=== PATIENT | male | born 1975 | race African-American/Black ===

== ENCOUNTER 2019-10-09 09:59 | Emergency (ER) | payer BC, SELFPAY ==
[2019-10-09 10:12] VITALS: BP 151/97; PULSE 101; RESP 18; TEMP 36.7; O2SAT 97
--- NOTE | 2019-10-09 10:54 | ED.MALEGU ---
HPI - Male Genitourinary General Chief complaint: Urogenital-Male <Marla Street PA-C - Last Filed: 10/09/19 12:08> Stated complaint: FORESKIN IS SWOLLEN <Marla Street PA-C - Last Filed: 10/09/19 12:08> Time Seen by Provider: 10/09/19 10:44 <Marla Street PA-C - Last Filed: 10/09/19 12:08> Source: patient <Marla Street PA-C - Last Filed: 10/09/19 12:08> Mode of arrival: ambulatory <Marla Street PA-C - Last Filed: 10/09/19 12:08> Limitations: no limitations <Marla Street PA-C - Last Filed: 10/09/19 12:08> History of Present Illness HPI Narrative: This is a 44 year old male that presents to the ER for foreskin inflammation since yesterday. Reports he started to have some irritation and itching 2 days ago. Reports he started to have swelling yesterday and cannot pull his foreskin back. Denies any concern for STDs. Denies dysuria or hematuria. <Marla Street PA-C - Last Filed: 10/09/19 12:08> Related Data Allergies/Adverse reactions: Allergies Allergy/AdvReac Type Severity Reaction Status Date / Time diphenhydramine AdvReac Severe Confusion Verified 10/09/19 11:51 <Marla Street PA-C - Last Filed: 10/09/19 12:08> Review of Systems Review of Systems: Narrative: CONSTITUTIONAL: Denies fever GENITOURINARY: Denies dysuria or hematuria SKIN: Denies rash <Marla Street PA-C - Last Filed: 10/09/19 12:08> All systems reviewed & are unremarkable except as noted in HPI and below <Marla Street PA-C - Last Filed: 10/09/19 12:08> [facility]LY [facility] Past Medical History Medical History: Medical History (Updated 10/09/19 @ 11:[address] PA-C) History of hypertension <Marla Street PA-C - Last Filed: 10/09/19 12:08> Surgical History Surgical History: Surgical History (Updated 10/09/19 @ 10:[address] PA-C) Status post cervical disc replacement <Marla Street PA-C - Last Filed: 10/09/19 12:08> Social History Social History: Social History Gender identity (if verbalized by the patient): Male <Marla Street PA-C - Last Filed: 10/09/19 12:08> Exam Narrative: Exam Narrative: GENERAL: Well-appearing, well-nourished, and in no acute distress. HEAD: Normocephalic, atraumatic. EYES: EOMI. EXTREMITIES: Normal range of motion. No edema. SKIN: Warm, dry, no rash. NEURO: No focal deficits. Alert and oriented x3. PSYCH: Normal mood and affect MALE GENITAL: Diffuse swelling of the foreskin, with clear/white discharge present. <Marla Street PA-C - Last Filed: 10/09/19 12:08> Course Vital Signs Vital signs: Vital Signs Temperature 98.1 F 10/09/19 10:12 Pulse Rate 101 H 10/09/19 10:12 Respiratory Rate 18 10/09/19 10:12 Blood Pressure 151/97 H 10/09/19 10:12 Pulse Oximetry 97 10/09/19 10:12 Temperature 98.1 F 10/09/19 10:12 Pulse Rate 87 10/09/19 12:37 Respiratory Rate 19 10/09/19 12:37 Blood Pressure 144/79 H 10/09/19 12:37 Pulse Oximetry 99 10/09/19 12:37 <Marla Street PA-C - Last Filed: 10/09/19 12:08> Vital Signs Temperature 98.1 F 10/09/19 10:12 Pulse Rate 101 H 10/09/19 10:12 Respiratory Rate 18 10/09/19 10:12 Blood Pressure 151/97 H 10/09/19 10:12 Pulse Oximetry 97 10/09/19 10:12 Temperature 98.1 F 10/09/19 10:12 Pulse Rate 87 10/09/19 12:37 Respiratory Rate 19 10/09/19 12:37 Blood Pressure 144/79 H 10/09/19 12:37 Pulse Oximetry 99 10/09/19 12:37 <Rosalee Doss MD - Last Filed: 10/09/19 17:47> MDM - Male Genitourinary MDM Narrative Medical decision making narrative: Patient presents to the ER for foreskin irritation and edema. Patient does have edema of the foreskin with some white/clear discharge. He still is able to urinate without difficulty. Will be started on clotrimazole cream. UA with white blood cells and trace bacteria. Will be started on oral antibiotics. Chlamydia, tric
[2019-10-09 11:19] LABS: Add Urine Microscopic? YES; Appearance Urine Clear (Clear); Bacteria Urine Trace /hpf; Bilirubin Urine Negative (Negative); Color Urine Yellow (Yellow); Glucose Urine UA Negative (Negative); Ketones Urine Negative (Negative); Leukocyte Esterase Ur 1+ LEU/UL (Negative); Mucus Urine Few /lpf; Nitrate Urine Negative (Negative); Protein Urine 1+ mg/dL (Negative); Specific Grav Ur 1.024 (1.001-1.035); Squamous Epithelial Cell Urine Moderate /hpf (Few); Urobilinogen Urine Negative mg/dL (<2.0); WBC Urine 16-20 /hpf
[2019-10-09 11:25] LABS: Blood Urine Negative (Negative)
[2019-10-09 12:37] VITALS: BP 144/79; PULSE 87; RESP 19; O2SAT 99
== END 2019-10-09 12:38 | disposition home or self-care (01) ==
PROVIDERS: Physician Assistant; Emergency Provider General Practice
DX: N48.1 Balanitis (principal); I10 Essential (primary) hypertension
CPT/HCPCS: 81001; 87077; 87086; 87088; 87491; 87591; 87661; 99283